=== PATIENT | male | born 1995 | race Caucasian/White ===

== ENCOUNTER 2018-06-04 19:56 | Emergency (ER) | payer OTHER ==
[2018-06-04 20:11] VITALS: BP 124/82
--- NOTE | 2018-06-04 20:25 | UC ---
Hip/Pelvis Pain - HPI Summary HPI Summary: The patient is a 22-year-old male with the sudden onset of proximal anterior thigh pain while kicking a soccer ball. He felt a pop. He can bear weight on it. It increases in pain if he tries to lift the leg for example trying to go upstairs is very painful. He has had no prior injury to this leg. The injury is in the right thigh. - History Of Current Complaint Chief Complaint: UCLowerExtremity Stated Complaint: THIGH INJURY Time Seen by Provider: 06/04/18 20:14 Hx Obtained From: Patient Onset/Duration: Sudden Onset, Lasting Minutes Severity Initially: Moderate Severity Currently: Mild Pain Intensity: 4 Pain Scale Used: 0-10 Numeric Location: Discrete At: Character Of Pain: Aching, Throbbing Aggravating Factor(s): Movement Alleviating Factor(s): Rest Associated Signs And Symptoms: Positive: Negative Torso: 1 - tender here - Allergies/Home Medications Allergies/Adverse Reactions: Allergies Allergy/AdvReac Type Severity Reaction Status Date / Time No Known Allergies Allergy Verified 08/02/16 02:32 PMH/Surg Hx/FS Hx/Imm Hx Previously Healthy: Yes - Surgical History Surgical History: Yes Surgery Procedure, Year, and Place: EAR TUBES - Family History Known Family History: Positive: Diabetes - Social History Alcohol Use: Weekly Alcohol Amount: 5 drinks/week Substance Use Type: None Smoking Status (MU): Former Smoker Type: Cigarettes - Immunization History Most Recent Influenza Vaccination: 2016 Most Recent Tetanus Shot: within last 10 years Most Recent Pneumonia Vaccination: never Review of Systems Constitutional: Negative Skin: Negative Eyes: Negative ENT: Negative Respiratory: Negative Cardiovascular: Negative Gastrointestinal: Negative Genitourinary: Negative Motor: Negative Neurovascular: Negative Musculoskeletal: Myalgia Neurological: Negative Psychological: Negative Is Patient Immunocompromised?: No All Other Systems Reviewed And Are Negative: Yes Physical Exam Triage Information Reviewed: Yes Appearance: Well-Appearing, No Pain Distress, Well-Nourished Vital Signs: Initial Vital Signs Temp 98.1 F 06/04/18 20:05 Pulse 77 06/04/18 20:05 Resp 16 06/04/18 20:05 BP 124/82 06/04/18 20:05 Pulse Ox 98 06/04/18 20:05 Vital Signs Reviewed: Yes Eyes: Positive: Conjunctiva Clear ENT: Positive: Hearing grossly normal. Negative: Pharyngeal erythema, Nasal congestion, Trismus, Muffled voice, Hoarse voice Neck: Positive: Supple Respiratory: Positive: Lungs clear, Normal breath sounds, No respiratory distress, No accessory muscle use Cardiovascular: Positive: RRR, No Murmur Musculoskeletal: Positive: No Edema, ROM Limited @, Other: - right hip/no pain with internal or external rotation Neurological: Positive: Alert Skin Exam: Normal Diagnostics - Radiology No standard instances Xray Interpretation: No Acute Changes Radiology Interpretation Completed By: ED Physician Hip Injury Course/Dx - Differential Dx/Diagnosis Provider Diagnoses: right anterior thigh strain Discharge - Sign-Out/Discharge Documenting (check all that apply): Patient Departure All imaging exams completed and their final reports reviewed: No - final report pending at D/C, I did a wet read - Discharge Plan Condition: Stable Disposition: HOME Patient Education Materials: Muscle Strain (ED), R.I.C.E. Treatment (ED) Referrals: [facility] [Outside] - As Soon As Possible Additional Instructions: advil or john ma - Billing Disposition and Condition Condition: STABLE Disposition: Home
--- NOTE | 2018-06-05 08:02 | RAD ---
Indication: Anterior thigh pain when taking Comparison: None. Technique: 4 views right femur. Report: The visualized bones are adequately corticated and well aligned. There is no acute fracture, dislocation or other focal abnormality. The soft tissues appear grossly normal. IMPRESSION: Normal right femur radiograph. If the patient's symptoms persist, follow-up imaging is recommended. R1
== END 2018-06-04 20:59 | disposition home or self-care (01) ==
LOC: UCEAST 19:56
DX: S76.811A Strain of other specified muscles, fascia and tendons at thigh level, right thigh, initial encounter (principal); Z87.891 Personal history of nicotine dependence; Y93.89 Activity, other specified; Y92.9 Unspecified place or not applicable; X50.9XXA Other and unspecified overexertion or strenuous movements or postures, initial encounter
CPT/HCPCS: 99212; G0463